=== PATIENT | male | born 2000 | race Two or more races ===

== ENCOUNTER 2024-02-23 13:22 | Emergency (ER) | payer OTHER ==
[~2024-02-23] VITALS: Ht 180.3 cm; Wt 84.0 kg
[2024-02-23] MEDS ORDERED: IBUP-1455 PO (15:47)
[2024-02-23] MEDS ORDERED: ACET500T58 PO (16:09)
[2024-02-23 16:18] VITALS: BP 145/71; PULSE 78; RESP 17; TEMP 98.7; O2SAT 100
== END 2024-02-23 16:19 | disposition home or self-care (01) ==
LOC: EDBD 13:22 → ER 13:22
DX: S42.011A Anterior displaced fracture of sternal end of right clavicle, initial encounter for closed fracture (principal); V29.888A Rider (driver) (passenger) of other motorcycle injured in other specified transport accidents, initial encounter; Y93.89 Activity, other specified; Y92.89 Other specified places as the place of occurrence of the external cause; Y99.8 Other external cause status
CPT/HCPCS: 70450; 72125; 72170; 73000; 76700